=== PATIENT | female | born 1985 | race Hispanic/Latino ===

== ENCOUNTER 2018-12-18 12:50 | Emergency (ER) | payer BC ==
[2018-12-18 13:41] LABS: Absolute Lymphocytes (CBC) 1.4 K/uL (0.7-4.9); Basophils % 0.1 % (0-1.3); Eosinophils % 0.1 % (0-4.4); Hematocrit 38.1 % (36.0-45.0); MPV 8.3 fL (7.6-11.3); Monocytes % 6.8 % (3.3-12.3)
[2018-12-18 13:48] LABS: BUN Blood Urea Nitrogen 7 mg/dL (7-18); Bicarbonate 25 mmol/L (21-32); Glucose Level 86 mg/dL (74-106); Potassium 3.5 mmol/L (3.5-5.1); Sodium Level 137 mmol/L (136-145)
--- NOTE | 2018-12-18 14:49 | EDPHYS ---
Physician Documentation [facility] Name: Susanne Boswell Age: 33 yrs Sex: Female : 1985 Arrival Date: 12/18/2018 Time: 12:53 Bed Treatment Private MD: ED Physician Francisco Armenta HPI: 12/18 12:59 This 33 yrs old Female presents to ER via Ambulatory with complaints of Insect jmm Bite, Rash. 12:59 The patient's rash thought to be caused by an unknown cause. Onset: The jmm symptoms/episode began/occurred gradually, 1 day(s) ago. Associated signs and symptoms: Pertinent positives: itching, Pain Pertinent negatives: fever. This is a 33 year old female with no chronic medical conditions that presents to the ED with complaints of rash to the right leg. Patient denies fever. . Historical: - Allergies: 12:56 No Known Allergies; la1 - PMHx: 12:56 None; la1 - Immunization history:: Adult Immunizations up to date. - Social history:: Smoking status: Patient/guardian denies using tobacco. - Ebola Screening: : No symptoms or risks identified at this time. ROS: 12:59 Constitutional: Negative for fever, chills, and weight loss, Cardiovascular: Negative jmm for chest pain, palpitations, and edema, Respiratory: Negative for shortness of breath, cough, wheezing, and pleuritic chest pain. 12:59 MS/extremity: Positive for rash. 12:59 Skin: Positive for rash, swelling. 12:59 All other systems are negative. Exam: 12:59 Constitutional: This is a well developed, well nourished patient who is awake, alert, jmm and in no acute distress. Head/Face: atraumatic. Eyes: EOMI, no conjunctival erythema appreciated ENT: Moist Mucus Membranes Neck: Trachea midline, Supple Chest/axilla: Normal chest wall appearance and motion. Cardiovascular: Regular rate and rhythm. No edema appreciated Respiratory: Normal respirations, no respiratory distress appreciated Abdomen/GI: Non distended, soft Back: Normal ROM 12:59 Skin: erythema noted to the right lower leg, does not appear to paulie. Non tender to palpation. . 12:59 Neuro: Orientation: is normal, Mentation: is normal, Memory: is normal. 12:59 Psych: Behavior/mood is pleasant, cooperative. Vital Signs: 12:56 BP 141 / 69; Pulse 103; Resp 16; Temp 98.3; Pulse Ox 98% on R/A; Weight 78.02 kg; la1 Height 5 ft. 5 in. (165.10 cm); 12:56 Body Mass Index 28.62 (78.02 kg, 165.10 cm) la1 MDM: 12:59 Patient medically screened. [facility] 14:45 Data reviewed: vital signs, nurses notes. Counseling: I had a detailed discussion with parish the patient and/or guardian regarding: the historical points, exam findings, and any diagnostic results supporting the discharge/admit diagnosis, the need for outpatient follow up, to return to the emergency department if symptoms worsen or persist or if there are any questions or concerns that arise at home. ED course: Patient is alert and non toxic in appearance. PE findings appeared consistent with purpura. Platelets are normal. Patient is advised to follow up with pcp and otherwise strict return precautions. Patient understood and agrees with the plan of care. . 12/18 13:11 Order name: CBC with Diff; Complete Time: 14:05 [facility] 12/18 13:11 Order name: BMP; Complete Time: 14:05 [facility] Administered Medications: No medications were administered Disposition: 12/18/18 14:48 Discharged to Home. Impression: Rash and other nonspecific skin eruption. - Condition is Stable. - Discharge Instructions: Rash. - Prescriptions for Cephalexin 500 mg Oral Capsule - take 1 capsule by ORAL route every 6 hours for 10 days; 40 capsule. Prednisone 20 mg Oral Tablet - take 3 tablet by ORAL route once daily for 5 days; 15 tablet. - Medication Reconciliation Form, Thank You Letter, Antibiotic Education, Prescription Opioid Use form. - Follow up: Private Physician; When: 1 - 2 days; Reason: Recheck today's complaints, Continuance of care, Re-evaluation by your physician. Addendum: 12/20/2018 09:37 Co-signature as Attending Physician, Francisco Armenta MD I agree with the assessment and c [facility]ina plan of care. Signatures: Dispatcher [employer] EDFrancisco Rothman MD MD cha Mickail, Joel, PA PA jmm Williams, Irene, RN RN iw Attema, Lee, RN RN la1 Corrections: (The following items were deleted from the chart) 12/18 14:54 14:48 12/18/2018 14:48 Discharged to Home. Impression: Rash and other nonspecific skin iw eruption. Condition is Stable. Forms are Medication Reconciliation Form, Thank You Letter, Antibiotic Education, Prescription Opioid Use. Follow up: Private Physician; When: 1 - 2 days; Reason: Recheck today's complaints, Continuance of care, Re-evaluation by your physician. parish
--- NOTE | 2018-12-18 14:49 | ER ---
Nurse's Notes [facility] Name: Susanne Boswell Age: 33 yrs Sex: Female : 1985 Arrival Date: 12/18/2018 Time: 12:53 Bed Treatment Private MD: Diagnosis: Rash and other nonspecific skin eruption Presentation: 12/18 12:55 Presenting complaint: Patient states: I got bit by mosquitoes [place] and now the redness, swelling, itching is all getting worse. Rash noted to right leg/calf/thigh/foot. Transition of care: patient was not received from another setting of care. Onset of symptoms was December 18, 2018. Risk Assessment: Do you want to hurt yourself or someone else? Patient reports no desire to harm self or others. Initial Sepsis Screen: Does the patient meet any 2 criteria? No. Patient's initial sepsis screen is negative. Does the patient have a suspected source of infection? No. Patient's initial sepsis screen is negative. Care prior to arrival: None. 12:55 Method Of Arrival: Ambulatory la1 12:55 Acuity: AMARI 4 la1 Historical: - Allergies: 12:56 No Known Allergies; la1 - PMHx: 12:56 None; la1 - Immunization history:: Adult Immunizations up to date. - Social history:: Smoking status: Patient/guardian denies using tobacco. - Ebola Screening: : No symptoms or risks identified at this time. Screenin:57 Abuse screen: Denies threats or abuse. Nutritional screening: No deficits noted. la1 Tuberculosis screening: No symptoms or risk factors identified. Fall Risk None identified. Assessment: 12:57 General: Appears in no apparent distress. Behavior is calm, cooperative. Pain:. Pain: la1 Denies pain. Neuro: Level of Consciousness is awake, alert, obeys commands. Respiratory: Airway is patent Trachea midline Respiratory effort is even, unlabored, Respiratory pattern is regular, symmetrical. GI: No signs and/or symptoms were reported involving the gastrointestinal system. Derm: Skin is healthy with good turgor, Skin is pink, warm \T\ dry. Rash noted that is itchy, papular, red, raised, urticaria, on right foot, left foot and right leg. 14:34 Reassessment: Patient appears in no apparent distress at this time. No changes from la1 previously documented assessment. Patient and/or family updated on plan of care and expected duration. Pain level reassessed. Vital Signs: 12:56 BP 141 / 69; Pulse 103; Resp 16; Temp 98.3; Pulse Ox 98% on R/A; Weight 78.02 kg; la1 Height 5 ft. 5 in. (165.10 cm); 12:56 Body Mass Index 28.62 (78.02 kg, 165.10 cm) la1 ED Course: 12:53 Patient arrived in ED. mr 12:56 Triage completed. la1 12:56 Arm band placed on left wrist. la1 12:57 Patient has correct armband on for positive identification. la1 12:58 Abrahan Polk PA is PHCP. [facility] 12:58 Francisco Armenta MD is Attending Physician. [facility] 13:28 Inserted saline lock: 22 gauge in right antecubital area, using aseptic technique. la1 Blood collected. 14:34 Tj Bell, RN is Primary Nurse. la1 Administered Medications: No medications were administered Outcome: 14:48 Discharge ordered by MD. [facility] 14:54 Patient left the ED. iw 14:54 Discharged to home ambulatory. la1 14:54 Condition: stable 14:54 Discharge instructions given to patient, Instructed on discharge instructions, follow up and referral plans. medication usage, Demonstrated understanding of instructions, follow-up care, medications, Prescriptions given X 2. Signatures: Abrahan Polk PA PA jmm Rivera, Mary Magali Shoemaker RN RN Tj Bell RN RN [facility]
== END 2018-12-18 14:54 | disposition home or self-care (01) ==
LOC: ER 12:50
DX: R21 Rash and other nonspecific skin eruption (principal)
CPT/HCPCS: 36415; 80048; 85025; 99283